=== PATIENT | female | born 1980 | race Caucasian/White ===

== ENCOUNTER → 2020-07-30 | Emergency (ER) | payer OTHER, MEDICAID ==
[~2020-07-30] VITALS: Ht 175.3 cm; Wt 90.0 kg
[~2020-07-30] MED LIST: IBUPROFEN 600MG TABLET PO ONE
[2020-07-30 02:50] VITALS: BP 130/82
== END | disposition home or self-care (01) ==
LOC: ER 02:48
DX: M53.3 Sacrococcygeal disorders, not elsewhere classified (principal); Z88.0 Allergy status to penicillin
CPT/HCPCS: 72100; 72170; 72220; 81025; 99284

== ENCOUNTER 2021-04-26 01:31 | Emergency (ER) | payer MEDICAID, OTHER ==
[~2021-04-26] VITALS: Ht 175.3 cm; Wt 116.0 kg
[2021-04-26] MEDS ORDERED: KETOROLAC 60MG/2ML VIAL IM ONE (02:30)
[2021-04-26] MEDS ORDERED: CYCLOBENZAPRINE 10MG TABLET PO ONE (02:30)
[2021-04-26] MEDS ORDERED: CYCL10TA7 MT (04:08)
[2021-04-26] MEDS ORDERED: IBUP-2030 MT (04:08)
[2021-04-26 04:19] VITALS: BP 138/78
== END 2021-04-26 04:20 | disposition home or self-care (01) ==
LOC: ER 01:31
DX: S30.0XXA Contusion of lower back and pelvis, initial encounter (principal); M54.2 Cervicalgia; W22.8XXA Striking against or struck by other objects, initial encounter; Y93.89 Activity, other specified; Y92.89 Other specified places as the place of occurrence of the external cause; Y99.0 Civilian activity done for income or pay; Z88.0 Allergy status to penicillin
CPT/HCPCS: 72100; 96372; 99283; J1885

== ENCOUNTER 2022-02-10 01:52 | Emergency (ER) | payer MEDICAID ==
[~2022-02-10] VITALS: Ht 170.2 cm; Wt 200.0 kg
[~2022-02-10 01:52] MED LIST changes: +CYCL10TA21 MT; +IBUP-2030 MT; -IBUPROFEN 600MG TABLET PO ONE
[2022-02-10 02:13] VITALS: BP 124/77
== END 2022-02-10 08:01 | disposition left against medical advice (07) ==
LOC: ER 01:52
DX: Z53.21 Procedure and treatment not carried out due to patient leaving prior to being seen by health care provider (principal)